=== PATIENT | male | born 2005 | race Caucasian/White ===

== ENCOUNTER 2024-06-04 17:29 | Emergency (ER) | payer BC, SELFPAY ==
[2024-06-04 17:37] VITALS: BP 98/69
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
[2024-06-04 18:00] VITALS: BP 115/65
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
[2024-06-04] MEDS: ADACEL 0.5 ML IM (19:05)
[2024-06-04] MEDS: MOTRIN 600 MG PO (19:05)
== END 2024-06-04 19:23 | disposition home or self-care (01) ==
LOC: EMR 17:29
PROVIDERS: EMERGENCY PHYSICIAN Emergency Medicine
DX: S42.021A Displaced fracture of shaft of right clavicle, initial encounter for closed fracture (principal); S40.211A Abrasion of right shoulder, initial encounter; S00.01XA Abrasion of scalp, initial encounter; V00.831A Fall from motorized mobility scooter, initial encounter; Z23 Encounter for immunization
CPT/HCPCS: 99283; 90471; 73000; 73030; 90715